=== PATIENT | male | born 1955 | race Caucasian/White ===

== ENCOUNTER 2023-06-24 13:08 | Emergency (ER) | payer MEDICARE, OTHER ==
[~2023-06-24] VITALS: Ht 185 cm; Wt 95.0 kg
[2023-06-24] MEDS ORDERED: LISI10TA25 (13:28)
--- NOTE | 2023-06-24 13:34 | ED Head Injury ---
General Chief Complaint: Trauma-Non Activation Stated Complaint: BRAIN BLEED Nursing Triage Note: ARRIVED VIA POV FROM [facility]. REPORT STATES HE HAS A SUBDURAL. PT STATES HE FELL 2 WEEKS AGO OFF A LADDER HITTING HIS HEAD. +LOC. DENIES BEING ON BLOOD THINNERS. WENT TO THE CLINIC TODAY FOR COLD LIKE SX. Source: patient, other (CT scan report from [facility] done today showing right frontoparietal subdural hematoma with midline shift 3 mm right to left) History of Present Illness Date Seen by Provider: Jun 24, 2023 Time Seen by Provider: 13:11 Initial Comments 67 yo male presents by POV with complaint of head and sinus pressure. Had fallen about 4 feet from ladder 2 weeks ago. He had a brief LOC of 4-5 minutes. He had not seen anyone after this happened. He had a helper at his house that witnessed his fall and LOC to provide a time for his LOC. Patient is from [place] but bought a house in [place] and is working on renovating it. This is the house he was at when he had fallen off the ladder. He denies any other injuries. He has been having increasing sinus pressure in the last few days so he went to Urgent care in [place] today and they sent him for a CT scan of his head at the [facility] clinic. As patient was driving back to [place] the clinic was notified of the CT showing a subdural hematoma with midline shift. Patient was called and advised to go to ED here in [place]. He denies any change in vision, chest pain, abdominal pain. He states he did have an episode of vomiting x 1 but felt it was due to taking Ibuprofen on empty stomach. He has a history of Hypertension, BPH, and prior Cholecystectomy. He takes Lisinopril and a prostate medicine but no blood thinners. Occurred: other (fell 2 weeks ago) Severity: moderate Method of Injury: fell Loss of Consciousness: prolonged (minutes) Associated Systoms: No Chest Pain, No Cough, No Diaphoresis, No Fever/Chills; Headaches (sinus headache/pressure); No Loss of Appetite, No Malaise, No Rash, No Seizure, No Shortness of Air, No Syncope; Weakness (overall feels weak ) Allergies and Home Medications Allergies Coded Allergies: No Known Drug Allergies (Unverified , 06/24/23) Patient Home Medication List Home Medication List Reviewed: Yes Lisinopril (Lisinopril) 10 Mg Tablet, (Reported) Entered as Reported by: OC ALCOCER on 06/24/23 1328 Last Action: New Order Review of Systems Review of Systems Constitutional: No chills, No dizziness, No fever Eyes: Denies Blindness, Denies Blurred Vision, Denies Photophobia, Denies Vision Changes Ears, Nose, Mouth, Throat: denies ear pain, denies ear discharge, denies nose pain, denies nose discharge, denies epistaxis Respiratory: no symptoms reported Cardiovascular: no symptoms reported Gastrointestinal: see HPI Genitourinary: no symptoms reported Musculoskeletal: no symptoms reported Skin: no symptoms reported Psychiatric/Neurological: Headache (sinus headache) Past Pudryov-Mnakkt-Dlduzw Hx Patient Social History Tobacco Use?: Yes Smoking Status: Former Smoker Substance use?: No Alcohol Use?: No Past Medical History Surgery/Hospitalization HX: Hypertension, Cholecystectomy, BPH Surgeries: Yes Gallbladder Physical Exam Vital Signs Vital Signs - First Documented 06/24/23 13:15 Temp 36.3 Pulse 85 Resp 16 B/P (MAP) 163/115 (131) Pulse Ox 98 O2 Delivery Room Air Capillary Refill : Less Than 3 Seconds Height, Weight, BMI Height: '" Weight: lbs. oz. kg; 27.00 BMI Method: General Appearance: WD/WN, no apparent distress HEENT: PERRL/EOMI, pharynx normal Neck: non-tender, full range of motion, supple, normal inspection Cardiovascular: normal peripheral pulses, regular rate, rhythm Respiratory: chest non-tender, lungs clear, normal breath sounds Gastrointestinal: normal bowel sounds, non tender, soft, no pulsatile mass Extremities: normal range of motion, non-tender, normal capillary refill Psychiatric: alert, oriented x 3 Crainal Nerves: normal hearing, normal speech, PERRL Coordination/Gait: normal gait Motor/Sensory: no motor deficit, no sensory deficit Skin: normal color, warm/dry Russell Coma Score Best Eye Response: (4) Open Spontaneously Best Verbal Response: (5) Oriented Best Motor Response: (6) Obeys Commands [place] Total: 15 Progress/Results/Core Measures Results/Orders Lab Results Laboratory Tests Test 06/24/23 13:15 06/24/23 13:20 Range/Units Urine Color YELLOW Urine Clarity CLEAR Urine pH 6.0 5-9 Urine Specific [place] 1.025 H 1.016-1.022 Urine Protein NEGATIVE NEGATIVE Urine Glucose (UA) NEGATIVE NEGATIVE Urine Ketones NEGATIVE NEGATIVE Urine Nitrite NEGATIVE NEGATIVE Urine Bilirubin NEGATIVE NEGATIVE Urine Urobilinogen 0.2 < = 1.0 MG/DL Urine Leukocyte Esterase NEGATIVE NEGATIVE Urine RBC (Auto) TRACE-I H NEGATIVE Urine RBC 2-5 H /HPF Urine WBC 0-2 /HPF Urine Squamous Epithelial Cells RARE /HPF Urine Crystals NONE /LPF Urine Bacteria NEGATIVE /HPF Urine Casts NONE /LPF Urine Mucus LARGE H /LPF Urine Culture Indicated NO White Blood Count 10.4 4.3-11.0 10^3/uL Red Blood Count 5.38 4.30-5.52 10^6/uL Hemoglobin 16.5 13.3-17.7 g/dL Hematocrit 46 40-54 % Mean Corpuscular Volume 85 80-99 fL Mean Corpuscular Hemoglobin 31 25-34 pg Mean Corpuscular Hemoglobin Concent 36 32-36 g/dL Red Cell Distribution Width 14.2 10.0-14.5 % Platelet Count 333 130-400 10^3/uL Mean Platelet Volume 9.1 9.0-12.2 fL Immature Granulocyte % (Auto) 0 % Neutrophils (%) (Auto) 81 H 42-75 % Lymphocytes (%) (Auto) 13 12-44 % Monocytes (%) (Auto) 5 0-12 % Eosinophils (%) (Auto) 0 0-10 % Basophils (%) (Auto) 0 0-10 % Neutrophils # (Auto) 8.4 H 1.8-7.8 10^3/uL Lymphocytes # (Auto) 1.3 1.0-4.0 10^3/uL Monocytes # (Auto) 0.6 0.0-1.0 10^3/uL Eosinophils # (Auto) 0.0 0.0-0.3 10^3/uL Basophils # (Auto) 0.0 0.0-0.1 10^3/uL Immature Granulocyte # (Auto) 0.0 0.0-0.1 10^3/uL Percent Immature Platelet Fraction 2.3 0.0-7.6 % Prothrombin Time 13.0 12.2-14.7 SEC INR Comment 0.9 0.8-1.4 Activated Partial Thromboplast Time 27 24-35 SEC Sodium Level 137 135-145 MMOL/L Potassium Level 4.0 3.6-5.0 MMOL/L Chloride Level 100 98-107 MMOL/L Carbon Dioxide Level 23 21-32 MMOL/L Anion Gap 14 5-14 MMOL/L Blood Urea Nitrogen 10 7-18 MG/DL Creatinine 0.73 0.60-1.30 MG/DL Estimat Glomerular Filtration Rate 100 BUN/Creatinine Ratio 14 Glucose Level 156 H 70-105 MG/DL Calcium Level 9.9 8.5-10.1 MG/DL Corrected Calcium 8.5-10.1 MG/DL Magnesium Level 2.3 1.6-2.4 MG/DL Total Bilirubin 0.8 0.1-1.0 MG/DL Aspartate Amino Transf (AST/SGOT) 11 5-34 U/L Alanine Aminotransferase (ALT/SGPT) 16 0-55 U/L Alkaline Phosphatase 99 40-136 U/L Troponin I < 0.30 <0.30 NG/ML Total Protein 8.0 6.4-8.2 GM/DL Albumin 4.9 H 3.2-4.5 GM/DL My Orders Orders - DAKOTA SAUCEDA MD Cbc And Automated Diff (06/24/23 13:16) Magnesium (06/24/23 13:16) Comprehensive Metabolic Panel (06/24/23 13:16) Protime With Inr (06/24/23 13:16) Partial Thromboplastin Time (06/24/23 13:16) O2 (06/24/23 13:16) Ed Iv/Invasive Line Start (06/24/23 13:16) Troponin I Fs (06/24/23 13:16) Ua Culture If Indicated (06/24/23 13:35) Ns Iv 1000 Ml (Ns Iv 1000 Ml) (06/24/23 14:05) Vital Signs/I&O 06/24/23 13:15 Temp 36.3 Pulse 85 Resp 16 B/P (MAP) 163/115 (131) Pulse Ox 98 O2 Delivery Room Air Blood Pressure Mean: 131 Progress Progress Note : Progress Note Reviewed CT report from CT head without contrast done at 1222 pm today at [facility] in [place] and read by Dr. Aric Birch at [address] scan of the head without contrast showed right cerebral convexity frontoparietal subdural hematoma with focal areas of more acute blood products superimposed. This results in mild sulcal effacement and approximately 3 mm of right to left midline shift. No hydrocephalus is seen and no calvarial fractures are seen. Patient reports having had pressure in feels like it is sinus pressure. He did have 1 episode of vomiting but otherwise is neurologically intact. He states he just feels weak especially as he is trying to move around and walk that he gets easily fatigued and his legs feel like they are going to give out on him. He has had no loss of bowel or bladder control. He has had no numbness or weakness in his arms or legs. He denies taking any blood thinners. We will establish peripheral IV access and send labs for complete blood count, comprehensive metabolic profile, coagulation factors. Urinalysis to look at hydration. Patient request to try and go to [place] in terms of seeing a neurosurgeon as he states he has family in the area. 1329 call placed to [facility] in [place]. I spoke with MELANIA Joya, at the transfer center. She took some basic information on the patient and then because they are at capacity went to check with administration about the 2-week old trauma. Since the patient has not been seen anywhere had an evaluation by neurosurgery they accepted him as a trauma patient. She connected me with Dr. Corona in the emergency department and Dr. Randall,neurosurgeon. I reviewed patient history and current exam as well as CT findings from today. As patient is neurologically intact currently Dr. Randall with neurosurgery did mention that she would probably have sent the patient home since it happened 2 weeks ago. She will review images after they are clouded and will see the patient to determine if he can be sent back home or if he needs any additional treatment. Critical Care Note Critical Care Total Time (minutes) 30 minutes Progress Spent at least 30 minutes of critical care time with the patient. Time excludes separately billable procedures. Time was spent obtaining history from the patient and [facility] clinic, ordering tests and reviewing results, discussion with consultants, documentation in the chart. Patient was at risk of neurologic compromise and collapse with having a subdural hematoma a nd signs of acute on subacute hemorrhage and midline shift with the CT scan of the head. He required my immediate attention and treatment to help stabilize his condition and arrange for transfer to a higher level of care. Departure Impression Primary Impression: Traumatic subdural hematoma with brief loss of consciousness Additional Impression: Fall on and from ladder, initial encounter Disposition: 02 XFER SHT-TRM HOSP Condition: Critical Transfer Transfer Reason: Exceeds level of care (Trauma and Neurosurgery) Time Spoke to Accepting Phy: 13:45 Transfer Progress Notes 1329 call placed to [facility] in [place]. I spoke with MELANIA Joya, at the transfer center. She took some basic information on the patient and then because they are at capacity went to check with administration about the 2-week old trauma. Since the patient has not been seen anywhere had an evaluation by neurosurgery they accepted him as a trauma patient. She connected me with Dr. Corona in the emergency department and Dr. Randall,neurosurgeon. I reviewed patient history and current exam as well as CT findings from today. As patient is neurologically intact currently Dr. Randall with neurosurgery did mention that she would probably have sent the patient home since it happened 2 weeks ago. She will review images after they are clouded from [facility] and will see the patient to determine if he can be sent back home or if he needs any additional treatment. Transfer Facility: [facility] [place] Method of Transfer: EMS Departure-Patient Inst. Referrals: NO,LOCAL PHYSICIAN (PCP/Family) Primary Care Physician DAKOTA SAUCEDA MD Jun 24, 2023 13:34
[2023-06-24 13:39] LABS: BILIRUBIN,URINE NEGATIVE (NEGATIVE); CLARITY,URINE CLEAR; COLOR,URINE YELLOW; GLUCOSE, URINE (UA) NEGATIVE (NEGATIVE); KETONES,URINE NEGATIVE (NEGATIVE); LEUKOCYTE ESTERASE ,URINE NEGATIVE (NEGATIVE); NITRITE,URINE NEGATIVE (NEGATIVE); PROTEIN,URINE NEGATIVE (NEGATIVE)
[2023-06-24 13:47] LABS: CHLORIDE 100 MMOL/L (98-107); INR 0.9 (0.8-1.4); SODIUM 137 MMOL/L (135-145)
[2023-06-24 13:52] LABS: BASOPHILS % (AUTO) 0 % (0-10); EOSINOPHILS % (AUTO) 0 % (0-10); HEMATOCRIT 46 % (40-54); HEMOGLOBIN 16.5 g/dL (13.3-17.7); LYMPHOCYTES # (AUTO) 1.3 10^3/uL (1.0-4.0); LYMPHOCYTES % (AUTO) 13 % (12-44); MEAN CORPUSCULAR HEMOGLOBIN 31 pg (25-34); MEAN CORPUSCULAR HGB CONC 36 g/dL (32-36); MEAN CORPUSCULAR VOLUME 85 fL (80-99); MEAN PLATELET VOLUME 9.1 fL (9.0-12.2); MONOCYTES # (AUTO) 0.6 10^3/uL (0.0-1.0); MONOCYTES % (AUTO) 5 % (0-12); NEUTROPHILS # (AUTO) 8.4 10^3/uL (1.8-7.8); NEUTROPHILS % (AUTO) 81 % (42-75); PLATELET COUNT 333 10^3/uL (130-400); WHITE BLOOD COUNT 10.4 10^3/uL (4.3-11.0)
[2023-06-24 13:52] LABS: BACTERIA,URINE NEGATIVE /HPF; WBC,URINE 0-2 /HPF
[2023-06-24 13:53] LABS: SQUAMOUS EPITHELIAL CELL,UR RARE /HPF
[2023-06-24 13:54] LABS: ALANINE AMINOTRANSFERASE 16 U/L (0-55); ALKALINE PHOSPHATASE 99 U/L (40-136); BILIRUBIN,TOTAL 0.8 MG/DL (0.1-1.0); BUN/CREATININE RATIO 14; CALCIUM 9.9 MG/DL (8.5-10.1); CARBON DIOXIDE 23 MMOL/L (21-32); CREATININE SERUM 0.73 MG/DL (0.60-1.30); GFR ESTIMATED 100; GLUCOSE 156 MG/DL (70-105); MAGNESIUM 2.3 MG/DL (1.6-2.4)
[2023-06-24 13:55] LABS: ALBUMIN 4.9 GM/DL (3.2-4.5)
[2023-06-24] MEDS ORDERED: NS IV 1000 ML 1,000 ML IV STA (14:05)
[2023-06-24 14:15] VITALS: BP 142/88
== END 2023-06-24 14:15 | disposition short-term general hospital (02) ==
LOC: ER FS 13:13
DX: S06.5X1A Traumatic subdural hemorrhage with loss of consciousness of 30 minutes or less, initial encounter (principal); Z87.891 Personal history of nicotine dependence; W11.XXXA Fall on and from ladder, initial encounter
CPT/HCPCS: 36415; 80053; 81000; 83735; 84484; 85025; 85610; 85730